=== PATIENT | male | born 1935 | race Caucasian/White ===

== ENCOUNTER 2018-06-16 12:52 | Day surgery (SDC) | payer MEDICARE, OTHER ==
[2018-06-16] MEDS ORDERED: KETAMINE HCL 500 MG/10 ML VIAL. (15:45)
[2018-06-16] MEDS ORDERED: PROPOFOL 20 ML IV (15:47)
[2018-06-16] MEDS: CHLORHEXIDINE 0.12% 15 ML MOUTHWASH. SWSP (15:58)
[2018-06-16] MEDS: BUPIVACAINE-EPI 0.25%-1:200000 50 ML VIAL. (15:58)
[2018-06-16] MEDS ORDERED: ONDANSETRON PF 4 MG/2 ML VIAL. (16:57)
== END 2018-06-16 17:52 | disposition home or self-care (01) ==
LOC: SURG 12:52
DX: K02.9 Dental caries, unspecified (principal); E78.00 Pure hypercholesterolemia, unspecified; I10 Essential (primary) hypertension; M19.90 Unspecified osteoarthritis, unspecified site; R56.9 Unspecified convulsions; F03.90 Unspecified dementia, unspecified severity, without behavioral disturbance, psychotic disturbance, mood disturbance, and anxiety; E66.9 Obesity, unspecified; Z68.33 Body mass index [BMI] 33.0-33.9, adult; F10.21 Alcohol dependence, in remission; Z79.82 Long term (current) use of aspirin; Z79.899 Other long term (current) drug therapy; Z96.653 Presence of artificial knee joint, bilateral; Z98.49 Cataract extraction status, unspecified eye
CPT/HCPCS: 41899; J0690; J2405; J2704; J3490

== ENCOUNTER → 2018-11-02 | Outpatient (CLI) | payer MEDICARE, OTHER ==
[2018-06-16 17:00] VITALS: BP 106/69
[~2018-11-02] MED LIST: ALLO300T PO; AMLO10TA6 PO; ASPI-630 PO; BARIUM SULFATE 40% (APPLE) 148 GM PWD. PO ONE; DONE10TA7 PO; LEVE500T6 PO; LISI10TA2 PO; MULT1TAB52 PO; PRAV20TA2 PO; QUET25TA5 PO; SERT50TA PO; TRAV5DRO EACHEYE; vit; vitamin b1 PO
--- NOTE | 2018-11-02 14:14 | RAD ---
Video dysphasia study, 11/02/2018: History: Dysphasia The swallowing mechanism was examined fluoroscopically in the lateral projection with the patient ingested a variety of food materials mixed with barium. 3.1 minutes of fluoroscopy time was utilized. One video fluoroscopic loop was recorded by a member of the speech Department. The patient demonstrated good oral control of the barium materials. There tended to be a mild delay in initiation of pharyngeal peristalsis. There was mild intermittent laryngeal penetration with the thin and thickened materials. This intermittently coated the posterior aspect of the epiglottis. Some of this material tended to eventually dribble down toward the vocal cords, although no definite randy aspiration was observed during this study. There tended to be a small amount of vallecular and piriform sinus residue. IMPRESSION: Mildly disordered swallowing mechanism with intermittent laryngeal penetration as described above. No randy aspiration was observed.
== END | disposition home or self-care (01) ==
LOC: RAD 13:17
PROVIDERS: ATTEND Family Medicine
DX: R13.19 Other dysphagia (principal); R47.81 Slurred speech
CPT/HCPCS: 74230; 92526; 92611; G8996; G8997; G8998

== ENCOUNTER 2020-06-29 08:57 | Inpatient (IN) | payer MEDICARE, OTHER ==
[~2020-06-29] VITALS: Ht 182.9 cm; Wt 76.5 kg
[~2020-06-29 08:57] MED LIST changes: -AMLO10TA6 PO; +AMLO10TA8 PO; -BARIUM SULFATE 40% (APPLE) 148 GM PWD. PO ONE; +MULT-445 PO; -MULT1TAB52 PO
--- NOTE | 2020-06-29 09:08 | PHYS DOC ---
General Adult HPI: HPI: Patient is a 84 year old male presents via EMS for concern of STEMI. 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 EMS was called immediately. After thorough evaluation, patient was found to be hemodynamically stable but there was concern for acute STEMI in leads V2 through V4. Patient was administered 324 mg aspirin, nitro placed was applied to left upper extremity, and patient was emergently transferred to our facility for higher acuity of care. Review of Systems: Review of Systems: History limited given patient's baseline mentation and cognition Denies any active chest pain, denies any pain, no shortness of breath Heart Score: HEART Score for Chest Pain: HEART Score for Chest Pain Response (Comments) Value History Highly Suspicious 2 ECG Nonspecific Repolarizatio 1 Age > 65 2 Risk Factors >3 Risk Factors or Hx CAD 2 Troponin < Normal Limit 0 Total 7 Risk Factors: Risk Factors: DM, Current or recent (<one month) smoker, HTN, HLP, family history of CAD, obesity. Risk Scores: Score 0 - 3: 2.5% MACE over next 6 weeks - Discharge Home Score 4 - 6: 20.3% MACE over next 6 weeks - Admit for Clinical Observation Score 7 - 10: 72.7% MACE over next 6 weeks - Early Invasive Strategies Allergies: Allergies: Allergies Coded Allergies Type Severity Reaction Last Updated Verified No Known Drug Allergies 06/16/18 No Physical Exam: PE: Constitutional: Malnourished, mild distress, non-toxic appearance. [] HENT: Normocephalic, atraumatic, bilateral external ears normal, oropharynx moist, no oral exudates, nose normal. [] Eyes: PERRLA, EOMI, conjunctiva normal, no discharge. [] Neck: Normal range of motion, no tenderness, supple, no stridor. [] Cardiovascular:Heart rate regular rhythm, no rubs or gallops. Chest wall non- tender to palpation [] Lungs & Thorax: Bilateral breath sounds clear to auscultation [] Abdomen: Bowel sounds normal, soft, no tenderness, no masses, no pulsatile masses. [] Skin: Warm, dry, no erythema, no rash. [] Back: No tenderness, no CVA tenderness. [] Extremities: No tenderness, no cyanosis, no clubbing, ROM intact, no edema. [] Neurologic: Alert and oriented to hospital only, baseline motor and sensory function per patient and EMS, no focal deficits noted. [] Psychologic: Flat affect, judgement normal, mood normal. [] Current Patient Data: Labs: Laboratory Tests Test 06/29/20 09:07 06/29/20 10:15 06/29/20 15:10 White Blood Count 8.9 x10^3/uL Red Blood Count 3.89 x10^6/uL Hemoglobin 11.7 g/dL Hematocrit 35.6 % Mean Corpuscular Volume 91 fL Mean Corpuscular Hemoglobin 30 pg Mean Corpuscular Hemoglobin Concent 33 g/dL Red Cell Distribution Width 13.5 % Platelet Count 305 x10^3/uL Neutrophils (%) (Auto) 43 % Lymphocytes (%) (Auto) 48 % Monocytes (%) (Auto) 5 % Eosinophils (%) (Auto) 3 % Basophils (%) (Auto) 1 % Neutrophils # (Auto) 3.8 x10^3/uL Lymphocytes # (Auto) 4.3 x10^3/uL Monocytes # (Auto) 0.4 x10^3/uL Eosinophils # (Auto) 0.3 x10^3/uL Basophils # (Auto) 0.1 x10^3/uL Sodium Level 142 mmol/L Potassium Level 3.2 mmol/L Chloride Level 104 mmol/L Carbon Dioxide Level 25 mmol/L Anion Gap 13 Blood Urea Nitrogen 10 mg/dL Creatinine 1.4 mg/dL Estimated GFR (Cockcroft-Gault) 48.2 BUN/Creatinine Ratio 7 Glucose Level 141 mg/dL Calcium Level 9.4 mg/dL Total Bilirubin 1.0 mg/dL Aspartate Amino Transf (AST/SGOT) 28 U/L Alanine Aminotransferase (ALT/SGPT) 25 U/L Alkaline Phosphatase 63 U/L Troponin I Quantitative < 0.017 ng/mL < 0.017 ng/mL Total Protein 7.9 g/dL Albumin 3.3 g/dL Albumin/Globulin Ratio 0.7 Ammonia 14 mcmol/L Vital Signs: Vital Signs Date Time Temp Pulse Resp B/P (MAP) Pulse Ox O2 Delivery O2 Flow Rate FiO2 06/29/20 12:50 96.7 69 16 94/55 (68) 96 Room Air 96.7 06/29/20 12:25 60 18 99 06/29/20 12:10 58 99 06/29/20 11:55 58 99 06/29/20 11:40 60 99 06/29/20 11:25 58 99 06/29/20 11:10 60 99 06/29/20 10:55 64 97 06/29/20 10:40 64 97 06/29/20 10:25 66 99 06/29/20 10:10 66 98 06/29/20 09:55 68 99 06/29/20 09:40 66 98 06/29/20 09:25 68 98 06/29/20 09:02 66 22 97 06/29/20 09:00 98.1 72 20 105/60 (75) 98 Nasal Cannula 1.0 98.1 EKG: EKG: EKG ordered and interpreted by myself at 0901 hrs. as normal sinus rhythm at 75 bpm, prolonged QTC 492, no axis deviation, no acute ischemic findings, no STEMI Radiology/Procedures: Radiology/Procedures: PROCEDURE: PORTABLE CHEST 1V AP chest. HISTORY: Chest pain AP view was taken of the chest. There is elevation left diaphragm. There is linear scarring or atelectasis in the left lung base. Heart is within normal limits in size. There is no pleural effusion. There are no other infiltrates. There is hypertrophic change in the thoracic spine and mild scoliosis. IMPRESSION: 1. Elevated left diaphragm. 2. Left base linear scarring or atelectasis. 3. No other acute infiltrates. Electronically signed by: Tucker Martinez MD (06/29/2020 9:21 AM) [id number] PROCEDURE: CT HEAD AND CERVICAL SPINE WO CT HEAD AND CERVICAL SPINE WO Date: 06/29/2020 9:17 AM Clinical Indication: fall, hit head, pain Comparison: 02/21/2020. Technique: 5 mm axial tomographic images were obtained of the head without contrast. These were viewed on brain and bone windows. Noncontrast CT of the cervical spine was performed. Sagittal and coronal reformats were performed and evaluated. One or more of the following dose reduction techniques were utilized: Automated exposure control (AEC), Adjustment of mA and/or kV according to patient size, Use of iterative reconstruction technique such as ASiR, CT scan done according to ALARA and image gently/image wisely HEAD FINDINGS: Moderate generalized cerebral and cerebellar volume loss. Extensive nonspecific periventricular hypoattenuation, most commonly seen with chronic small vessel ischemic disease. No intra- or extra-axial mass or fluid collection. No acute hemorrhage. The ventricles are normal in size, shape, and morphology. The george-white matter junction is normal. The basilar cisterns are patent. The visualized paranasal sinuses are normal. The visualized portions of the orbits and globes are normal. The mastoid air cells are clear. No aggressive osseous lesion or fracture. CERVICAL SPINE FINDINGS: The cervical spine is normally aligned. No acute fracture. No aggressive lytic or blastic osseous lesions. Moderate to severe multilevel degenerative disc space height loss. Multilevel mild spinal canal stenosis secondary to disc protrusions and marginal osteophytes. Multilevel moderate to severe neuroforaminal narrowing secondary to uncovertebral arthrosis. Multilevel moderate to severe facet arthrosis. The thyroid gland is normal. No cervical lymphadenopathy. Bilateral carotid atherosclerosis. The visualized aerodigestive tract is normal. The visualized portions of the lungs are clear. IMPRESSION: 1. No acute intracranial process. 2. No acute cervical spine fracture. Electronically signed by: Anastacio Kaufman MD (06/29/2020 9:40 AM) [id number] Course & Med Decision Making: Course & Med Decision Making EMS EKG reviewed by myself prior to arrival, non-concerning for acute STEMI Patient seen immediately on ED arrival by myself, nontoxic appearing, hemodynamically stable with repeat EKG showing no acute STEMI Comprehensive history and physical exam obtained with no acute surgical findings Pertinent labs and imaging obtained, grossly unremarkable Patient case discussed at length with patient and who assisted with further history gathering. All in favor for admission for continued observation and h igh risk patient Case discussed with hospitalist who agreed to admission for continued cardiac observation with consideration for cardiology consultation All questions and concerns addressed prior to transport up for further medical management Dragon Disclaimer: Dragon Disclaimer: This electronic medical record was generated, in whole or in part, using a voice recognition dictation system. Departure Departure Impression: Primary Impression: Chest pain Additional Impression: History of recent fall Disposition: ADMITTED INPATIENT Admitting Physician: Madi. Morrow Condition: STABLE Referrals: MICHAEL VILLANUEVA MD (PCP) Justicifation of Admission Dx: Justifications for Admission: Justification of Admission Dx: Yes Angina: Unstable Variant LIANET HAINES DO Jun 29, 2020 09:08
[2020-06-29 09:15] LABS: BASO # 0.1 x10^3/uL (0.0-0.2); BASO % 1 % (0-3); EOS # 0.3 x10^3/uL (0.0-0.7); EOS % 3 % (0-3); HEMATOCRIT 35.6 % (39.0-53.0); HEMOGLOBIN 11.7 g/dL (13.0-17.5); LYMPH # 4.3 x10^3/uL (1.0-4.8); LYMPH % 48 % (24-48); MEAN CORPUSCULAR HEMOGLOBIN 30 pg (25-35); MEAN CORPUSCULAR HGB CONC 33 g/dL (31-37); MEAN CORPUSCULAR VOLUME 91 fL (79-100); MONO # 0.4 x10^3/uL (0.0-1.1); MONO % 5 % (0-9); NEUT # 3.8 x10^3/uL (1.8-7.7); NEUT % 43 % (31-73); PLATELET COUNT 305 x10^3/uL (140-400); RED BLOOD COUNT 3.89 x10^6/uL (4.30-5.70); RED CELL DISTRIBUTION WIDTH 13.5 % (11.5-14.5); WHITE BLOOD COUNT 8.9 x10^3/uL (4.0-11.0)
--- NOTE | 2020-06-29 09:23 | RAD ---
AP chest. HISTORY: Chest pain AP view was taken of the chest. There is elevation left diaphragm. There is linear scarring or atelectasis in the left lung base. Heart is within normal limits in size. There is no pleural effusion. There are no other infiltrates. There is hypertrophic change in the thoracic spine and mild scoliosis. IMPRESSION: 1. Elevated left diaphragm. 2. Left base linear scarring or atelectasis. 3. No other acute infiltrates. Electronically signed by: Tucker Martinez MD (06/29/2020 9:21 AM) [id number]
[2020-06-29 09:26] LABS: CALCIUM 9.4 mg/dL (8.5-10.1); CREATININE 1.4 mg/dL (0.7-1.3); GFR 48.2; POTASSIUM 3.2 mmol/L (3.5-5.1)
[2020-06-29 09:32] LABS: ALBUMIN 3.3 g/dL (3.4-5.0); ALBUMIN/GLOBULIN RATIO 0.7 (1.0-1.7); TOTAL PROTEIN 7.9 g/dL (6.4-8.2)
--- NOTE | 2020-06-29 09:43 | RAD ---
CT HEAD AND CERVICAL SPINE WO Date: 06/29/2020 9:17 AM Clinical Indication: fall, hit head, pain Comparison: 02/21/2020. Technique: 5 mm axial tomographic images were obtained of the head without contrast. These were viewed on brain and bone windows. Noncontrast CT of the cervical spine was performed. Sagittal and coronal reformats were performed and evaluated. One or more of the following dose reduction techniques were utilized: Automated exposure control (AEC), Adjustment of mA and/or kV according to patient size, Use of iterative reconstruction technique such as ASiR, CT scan done according to ALARA and image gently/image wisely HEAD FINDINGS: Moderate generalized cerebral and cerebellar volume loss. Extensive nonspecific periventricular hypoattenuation, most commonly seen with chronic small vessel ischemic disease. No intra- or extra-axial mass or fluid collection. No acute hemorrhage. The ventricles are normal in size, shape, and morphology. The george-white matter junction is normal. The basilar cisterns are patent. The visualized paranasal sinuses are normal. The visualized portions of the orbits and globes are normal. The mastoid air cells are clear. No aggressive osseous lesion or fracture. CERVICAL SPINE FINDINGS: The cervical spine is normally aligned. No acute fracture. No aggressive lytic or blastic osseous lesions. Moderate to severe multilevel degenerative disc space height loss. Multilevel mild spinal canal stenosis secondary to disc protrusions and marginal osteophytes. Multilevel moderate to severe neuroforaminal narrowing secondary to uncovertebral arthrosis. Multilevel moderate to severe facet arthrosis. The thyroid gland is normal. No cervical lymphadenopathy. Bilateral carotid atherosclerosis. The visualized aerodigestive tract is normal. The visualized portions of the lungs are clear. IMPRESSION: 1. No acute intracranial process. 2. No acute cervical spine fracture. Electronically signed by: Anastacio Kaufman MD (06/29/2020 9:40 AM) [id number]
[2020-06-29] MEDS ORDERED: NITROGLYCERIN SUBLINGUAL 0.4 MG BOTTLE OF 25. SL PRN (12:00)
[2020-06-29 12:50] VITALS: BP 94/55
[2020-06-29] MEDS ORDERED: POTASSIUM CHLORIDE 20 MEQ TABLET.ER. PO ONE (15:15)
--- NOTE | 2020-06-29 15:30 | PDOC2 ---
VAZQUEZ ANDERSON ELECTROCARDIOGRAPH TECHNICIAN 06/29/20 1530: CARDIAC CONSULT DATE OF CONSULT Date of Consult DATE: 06/29/20 TIME: 15:06 REASON FOR CONSULT Reason for Consult: Chest pain, r/o ACS REFERRING PHYSICIAN Referring Physician: Carlos SOURCE Source: Chart review HISTORY OF PRESENT ILLNESS HISTORY OF PRESENT ILLNESS This is an 84 yo male admitted for altered mental state. She resides at the half-way and being walked by therapy and he was noted to just started having twitching episode and was diaphoretic and was not responding with communication. No lost of consciousness. There was no complains of chest pain or SOA. His VS was checked and he was not tachypneic and his O2 sat was at 96%. He was given ASA byt EMS by mouth but he was noted to be pocketing this . He was just discharged on 06/20 from [facility] and was treated over there for UTI. No prior hx of CAD nor arrhythmias. He does have hx of CVA and seizures and significant for dementia with severe cerebral atrophy. I discussed this further with his daughter and told me that he was sitting on the toilet this morning and started twitching and also became unresponsive. PAST MEDICAL HISTORY Cardiovascular: HTN, Hyperlipidemia, Other (mild carotid artery disease) Pulmonary: Pneumonia CENTRAL NERVOUS SYSTEM: CVA (hemorhagic CVA in 2009), Dementia, Seizure, TIA, Other (severe cerebral atrophy) Heme/Onc: Anemia NOS Psych: Anxiety, Depression Musculoskeletal: Osteoarthritis Rheumatologic: Gout Renal/: UTI, Urinary Incontinence, Other (nephrolithiasis) Endocrine: Diabetes (2) PAST SURGICAL HISTORY Past Surgical History: Total knee replacement (bilateral), Other (right lumpectomy) FAMILY HISTORY Family History: Coronary Artery Disease SOCIAL HISTORY Smoke: No ALCOHOL: other (prior heavy ETOH use) ALLERGIES ALLERGIES: Coded Allergies: rosuvastatin (Verified Allergy, Intermediate, 06/30/20) ROS Review of System unreliable, dementia PHYSICAL EXAM General: Alert, No acute distress HEENT: Atraumatic Lungs: Other (diminished) Heart: Regular rate (SR), Normal S1, Normal S2, No murmurs Abdomen: Soft, No tenderness Extremities: No cyanosis, No edema Skin: No breakdown, No significant lesion Neuro: Sensation intact Psych/Mental Status: Other (combative at times, confused) MUSCULOSKELETAL: Osteoarthritic changes both hands VITALS/I&O VITALS/I&O: Vital Signs Date Time Temp Pulse Resp B/P (MAP) Pulse Ox O2 Delivery O2 Flow Rate FiO2 06/29/20 12:50 96.7 69 16 94/55 (68) 96 Room Air 96.7 06/29/20 09:00 1.0 LABS Lab: Laboratory Tests Test 06/29/20 09:07 06/29/20 10:15 White Blood Count 8.9 x10^3/uL (4.0-11.0) Red Blood Count 3.89 x10^6/uL (4.30-5.70) L Hemoglobin 11.7 g/dL (13.0-17.5) L Hematocrit 35.6 % (39.0-53.0) L Mean Corpuscular Volume 91 fL (79-100) Mean Corpuscular Hemoglobin 30 pg (25-35) Mean Corpuscular Hemoglobin Concent 33 g/dL (31-37) Red Cell Distribution Width 13.5 % (11.5-14.5) Platelet Count 305 x10^3/uL (140-400) Neutrophils (%) (Auto) 43 % (31-73) Lymphocytes (%) (Auto) 48 % (24-48) Monocytes (%) (Auto) 5 % (0-9) Eosinophils (%) (Auto) 3 % (0-3) Basophils (%) (Auto) 1 % (0-3) Neutrophils # (Auto) 3.8 x10^3/uL (1.8-7.7) Lymphocytes # (Auto) 4.3 x10^3/uL (1.0-4.8) Monocytes # (Auto) 0.4 x10^3/uL (0.0-1.1) Eosinophils # (Auto) 0.3 x10^3/uL (0.0-0.7) Basophils # (Auto) 0.1 x10^3/uL (0.0-0.2) Sodium Level 142 mmol/L (136-145) Potassium Level 3.2 mmol/L (3.5-5.1) L Chloride Level 104 mmol/L (98-107) Carbon Dioxide Level 25 mmol/L (21-32) Anion Gap 13 (6-14) Blood Urea Nitrogen 10 mg/dL (8-26) Creatinine 1.4 mg/dL (0.7-1.3) H Estimated GFR (Cockcroft-Gault) 48.2 BUN/Creatinine Ratio 7 (6-20) Glucose Level 141 mg/dL (70-99) H Calcium Level 9.4 mg/dL (8.5-10.1) Total Bilirubin 1.0 mg/dL (0.2-1.0) Aspartate Amino Transferase (AST) 28 U/L (15-37) Alanine Aminotransferase (ALT) 25 U/L (16-63) Alkaline Phosphatase 63 U/L (46-116) Troponin I Quantitative < 0.017 ng/mL (0.000-0.055) Total Protein 7.9 g/dL (6.4-8.2) Albumin 3.3 g/dL (3.4-5.0) L Albumin/Globulin Ratio 0.7 (1.0-1.7) L Ammonia 14 mcmol/L (11-34) Laboratory Tests 06/29/20 09:07 Laboratory Tests 06/29/20 09:07 ECHOCARDIOGRAM ECHOCARDIOGRAM <Conclusion> The left ventricle is normal size. The left ventricular systolic function is normal and the ejection fraction is within normal range. The Ejection Fraction is 55-60%. There is mild concentric left ventricular hypertrophy. There is no significant aortic valvular stenosis. Doppler and Color Flow revealed no significant aortic regurgitation. Doppler and Color Flow revealed trace mitral valve regurgitation. Doppler and Color Flow revealed trace tricuspid regurgitation. The PA pressure was estimated at 24 mmHg. DATE: 10/09/18 1150 ASSESSMENT/PLAN ASSESSMENT/PLAN 1. Atypical chest pain: no noted chest pain. EKG SR with IVCD no acute changes 2. Encephalopathy with possible seizure episode 3. Hypokalemia 4. Hx of hemorrhagic CVA: 2009 5. Hx of seizures: noted to be twicthing at the facility 6. DM2 7. Recent UTI with hx of nephrolithiasis 8. HTN: BP at low end. 9. DM2/HLP 10. High risk for aspiration 11. Underlying dementia with severe cerebral atrophy Recommendations 1. Hold BP meds for now DC NTG paste placed by EMS 2. Doubt ACS, No acute changes to EKG. Recheck UA for any persistent UTI contributing to encephalopathy 3. Replace K. 4. Conservative measures, discussed with daughter and spouse. will provide her copy of DNR form as she described 5. Likely dehydratedm, IVF x1, will defer further to PCP. Discussed with RN. COLLIN BURNETTE MD 06/30/20 1056: CARDIAC CONSULT ASSESSMENT/PLAN ASSESSMENT/PLAN Late entry for 06/29/2020 Pt. seen and examined. Agree with above HEALTHCARE RECRUITER note. No cardiac issues. Consider hospice consult. Thanks Discussed with family at bedside. VAZQUEZ ANDERSON APRN Jun 29, 2020 15:30 COLLIN BURNETTE MD Jun 30, 2020 10:56
[2020-06-29] MEDS ORDERED: IV NORMAL SALINE 1000ML BAG 1,000 ML IV ONE (16:15)
[2020-06-29 19:00] VITALS: BP 119/54
--- NOTE | 2020-06-29 19:20 | NUR ---
NURSING NOTE Shift change report given at bedside from Jo DAY. Pt is alert, and able to state his first and last name. Pt says "yes" when asked if he feels ok. Bed alarm on. Will monitor.
[2020-06-29] MEDS ORDERED: ACET500T68 PO (20:16)
[2020-06-29] MEDS ORDERED: CHOL2400 MC (20:16)
[2020-06-29] MEDS ORDERED: LEVE500T21 PO (20:16)
[2020-06-29] MEDS ORDERED: TIMO5DRO35 OP (20:16)
--- NOTE | 2020-06-29 22:14 | NUR ---
NURSING NOTE Upon entering the pt room, pt had taken all his clothing off, pulled both IVs out and thrown tele pack on the floor. Pt very agitated and attempting to hit and kick staff when trying to place a brief and replace gown and tele monitor. Attempted to calm pt, but unable. Dr. Gonzalez called. Order for YADIRA Rice received. Will monitor.
[2020-06-29] MEDS ORDERED: HALOPERIDOL LACTATE 5 MG/ML VIAL. IM ONE (22:30)
[2020-06-29] MEDS: HALOPERIDOL LACTATE 5 MG/ML VIAL. IM PRN (22:42)
[2020-06-29 23:00] VITALS: BP 116/67
[2020-06-30] MEDS ORDERED: C.DIFF MED SCREEN BY RX. MC ONE (00:30)
--- NOTE | 2020-06-30 00:30 | NUR ---
NURSING NOTE Pt bed alarm going off. Pt attempting to get OOB. Pt directed to place legs back in bed. Pt agreeable to allow this RN to change his brief and his bottom sheet at this time. Pt also allowed a gown to be placed on him, but pulled the telemetry patches off as soon as they were placed, therefore pt refusing tele monitoring at this time. Pt also removed his ID bracelet and allergy/fall risk bracelet and would not allow new ones to be placed at this time. Pt also would not allow a new IV to be started, even after explaining the procedure to the patient several times, pt still pulled arm away and said "no". Pt also would not allow a bandage to be placed over left wrist, where pt had pulled previous IV out, there is a small skin tear. Bed alarm on, pt says "yes" when asked if he is comfortable at this time. Will monitor.
[2020-06-30 04:00] VITALS: BP 97/52
--- NOTE | 2020-06-30 06:15 | NUR ---
NURSING NOTE Pt more alert this morning. Pt agreeable to have brief changed and tele placed back on. Will monitor.
[2020-06-30 07:00] VITALS: BP 100/63
[2020-06-30 08:36] LABS: CHOLESTEROL/HDL RATIO 4.5
[2020-06-30] MEDS ORDERED: ACETAMINOPHEN 500 MG TABLET PO PRN (10:15)
--- NOTE | 2020-06-30 10:25 | PN ---
DATE: 06/30/2020 SUBJECTIVE: The patient is resting, slightly propped up in bed, no apparent distress. He is very agitated, restless, and combative. Apparently, he became also agitated last night and pulled all his IV line and his monitors. We have the nursing staff stated that he continued to have episodes of twitching mostly in his left lower extremity, although there is no loss of consciousness. PHYSICAL EXAMINATION: GENERAL: When I examined him, he looked well and was clearly in no apparent respiratory distress, pale, but no jaundice, cyanosis or thyromegaly. No jugular venous distention. No limb edema. VITAL SIGNS: Her heart rate was 66, blood pressure was 105/60, temperature was 98, respiratory rate was 22, and oxygen saturation was 98% on room air. HEAD, EYES, EARS, NOSE AND THROAT: Showed normocephalic, atraumatic. NECK: Supple. CARDIAC: Normal first and second heart sounds. No gallop, rub or murmur. CHEST: Clear to auscultation. No crepitation or rhonchi. ABDOMEN: Distended, soft, and nontender. NEUROLOGIC: He is awake and alert, but nonverbal. He moves extremities spontaneously, although he is mostly bedbound and chair-bound. He managed to stand and pivot. He apparently continued to have twitching movement mostly in the left lower extremity. Unfortunately, the patient is very combative and pulled his IV line. PLAN: My plan is to put another IV line, start him on IV fluids and switch his Keppra to be given IV. I did consult Dr. Gonzalez as well as speech therapist, physical and occupational therapist. He was seen yesterday by the Cardiology team and has 3 sets of cardiac enzymes that all were ruled out myocardial infarction. LIS DODGE MD DR: RACHELE/ervin JOB#: [id number] / [id number]
[2020-06-30] MEDS: QUEtiapine 25 MG TABLET. PO SCH ×2 (10:30→21:13)
[2020-06-30] MEDS: ALLOPURINOL 300 MG TABLET. PO SCH (10:30)
[2020-06-30] MEDS ORDERED: levETIRAcetam 500 MG TABLET PO SCH ×2 (10:30→21:00)
[2020-06-30] MEDS: THIAMINE 100 MG TABLET. PO SCH (10:30)
[2020-06-30] MEDS: MULTIVITAMIN with MINERAL TABLET. PO SCH (10:30)
[2020-06-30] MEDS: CHOLECALCIFEROL (VITAMIN D3) 1,000 UNIT TABLET PO SCH (10:30)
[2020-06-30] MEDS: amLODIPine BESYLATE 10 MG TABLET PO SCH (10:30)
[2020-06-30] MEDS: SERTRALINE 50 MG TABLET. PO SCH (10:30)
[2020-06-30] MEDS: ASPIRIN CHEWABLE 81 MG TABLET. PO SCH (10:30)
[2020-06-30 11:00] VITALS: BP 109/69
[2020-06-30] MEDS ORDERED: levETIRAcetam 500 MG in IV DEXTROSE 5% 100ML 100 ML IV SCH (11:00)
--- NOTE | 2020-06-30 11:03 | HP ---
ADMIT DATE: 06/29/2020 HISTORY OF PRESENT ILLNESS: The patient is an 84-year-old male patient, resident at [facility], who apparently was participating with physical therapy and according to the nursing staff there, the patient became extremely diaphoretic, unresponsive, and therefore, he was also noted to have twitching episodes. When I spoke with the nursing staff, they said that they has no complaint of chest pain or shortness of breath. He was not tachypneic and his oxygen saturation was normal. He was given an aspirin by the emergency medical personnel; however, he was noted to be pocketing it. The patient was discharged from [facility] on 06/20 where he was treated for UTI and questionable healthcare-associated pneumonia. He has no prior history of coronary artery disease nor has arrhythmia. He is known to have CVA and seizure disorder. He has dementia and severe cerebral atrophy. He is mostly bedbound, chair bound. He managed apparently to stand and pivot. He was evaluated in the Emergency Room of [facility]. Has had lab work, which was mostly unremarkable except that he has hypokalemia. Has had a CT scan of the head and cervical spine, which basically showed no acute intracranial process, no acute cervical spine fracture, was admitted for further evaluation and treatment. PAST MEDICAL HISTORY: Significant for hypertension, hyperlipidemia, type 2 diabetes mellitus, cerebrovascular accident, dementia, gout, benign prostatic hypertrophy, epilepsy, and dysarthria. PAST SURGICAL HISTORY: Significant for lumpectomy of the right chest wall, bilateral total knee arthroplasty and colonoscopy. ALLERGIES:. HE IS ALLERGIC TO CRESTOR. FAMILY HISTORY: Noncontributory. SOCIAL HISTORY: He is currently a resident at [facility]. He is mostly bed bound, wheelchair bound. He is , an ex-smoker, quit in 1971. He used to be also a heavy drinker. REVIEW OF SYSTEMS: As per history of present illness. MEDICATIONS: He is currently on following medications: He is on Aricept 10 mg at bedtime, pravastatin sodium 20 mg at bedtime, amlodipine 10 mg once a day, aspirin 81 mg once a day, lisinopril 10 mg once a day, acetaminophen 1000 mg every 8 hours as needed, Keppra 500 mg twice a day, sertraline for Zoloft 50 mg once a day, quetiapine fumarate 25 mg twice a day. He is on timolol maleate and latanoprost 1 drop to both eyes daily. He is on Travatan 1 drop to both eyes at bedtime. He is on vitamin D3 1000 units daily, multivitamin 1 tablet once a day, allopurinol 300 mg once a day, vitamin B1 one tablet once a day. PHYSICAL EXAMINATION: GENERAL: On arrival to the Emergency Room, he looked well and was clearly in no apparent respiratory distress, pale. No jaundice, cyanosis or thyromegaly. No jugular venous distention. No limb edema. VITAL SIGNS: His heart rate was 72, blood pressure was 105/60, temperature 98.1, respiratory rate was 20, and oxygen saturation was 98% on 1 liter of oxygen. HEAD, EYES, EARS, NOSE AND THROAT: Showed normocephalic, atraumatic. NECK: Supple. HEART: Showed normal first and second heart sounds. No gallop, rub or murmur. CHEST: Clear to auscultation. No crepitation or rhonchi. ABDOMEN: Distended, soft, nontender. NEUROLOGIC: He was alert, oriented. His affect was flat. LABORATORY DATA: He has had lab work done, which showed that his white cell count was 8900, hemoglobin 11.7, hematocrit 36, MCV 91, and platelet count 305,000 with normal manual differential. In fact the manual differential showed 43% polymorphs and 48% lymphocytes, 5% monocytes. His chemistry showed a serum sodium of 142, potassium 3.2, chloride 104, bicarbonate 25, anion gap of 13, BUN 10, creatinine 1.4, estimated GFR was 48 mL per minute. His glucose was 141, calcium was 9.4. Total bilirubin, AST, ALT, alkaline phosphatase were normal. Total protein was 7.9, albumin 3.3. His first set of troponin was less than 0.017. His chest x-ray showed elevated left hemidiaphragm, left base linear scarring atelectasis, no other acute infiltrate. His CT scan of the head showed the patient has moderate generalized cerebral and cerebellar volume loss, extensive nonspecific periventricular hypoattenuation, most commonly seen with chronic small vessel ischemic disease. No intra or extraaxial mass or fluid collection. No acute hemorrhage. The ventricles are normal in size, shape and morphology. The george white matter junction is normal. The basilar cisterns are patent. The visualized paranasal sinuses are normal. The visualized portion of the orbits and globes are normal. The mastoid air cells are clear. No aggressive osseous lesions or fracture is seen. Cervical spine is normally aligned. No acute fracture. No aggressive lytic or blastic osseous lesion. The patient has moderate severe multilevel degenerative disk with height loss, multilevel mild spinal canal stenosis secondary to disk protrusion and marginal osteophyte. Has multilevel moderate to severe neural foraminal narrowing secondary to uncovertebral arthrosis, multilevel moderate to severe facet arthrosis. The thyroid gland is normal. No cervical lymphadenopathy, bilateral carotid atherosclerosis. The visualized aerodigestive tract is normal. ASSESSMENT AND PLAN: The patient was admitted. We will have 2 more sets of cardiac enzymes to rule out myocardial infarction. We will check and replenish his potassium. In fact, he was started on IV fluid and we have consulted the [employer] operations intelligence chief ____ mention of chest pain, although when I spoke with the daughter and RN, who took care of and she did not say that the patient has any chest pain. We will also ____ breakthrough seizure is possibility, so I will consult the neurologist. LIS DODGE MD DR: RACHELE/ervin JOB#: [id number] / [id number]
--- NOTE | 2020-06-30 12:01 | NUR ---
Bedside Swallow Evaluation completed. Please refer to full report in intervention section for additional information. Impressions: Moderate oropharyngeal dysphagia w/ subtle, consistent s/s aspiration w/ minimal trials of honey thick liquids and puree. Pt has dysphagia hx w/ 2018 videoswallow recommending soft diet and honey thick liquids. Currently pt at high risk of aspiration for all PO. His decreased/altered mental status at this admission from his prior baseline could be a contributing factor in addition to prior known aspiration risk. Recommendations: NPO, ST f/u for dysphagia to assess readiness/safety for return to [facility]. Nutrition consult. D/w RNJanie, pt and pt's dtr in room, swallow precautions posted.
[2020-06-30] MEDS: HALOPERIDOL LACTATE 5 MG/ML VIAL. IM PRN ×2 (14:11→19:49)
[2020-06-30 14:41] VITALS: BP 112/67
--- NOTE | 2020-06-30 16:42 | NUR ---
and daughter at bedside. , VONDA, had paperwork signed by patient from 2018 indicating that he requested to be a DNR. Discussed with family options of IV fluids or letting pt comfort eat/drink in spite of failed BSS. Risk of aspiration discussed in depth with family who wishes to proceed and let patient eat/drink. will place patient on puree w/ HTL as that is what he was on at [facility]. Pt also made a DNR in record. family requests no IV restart and that tele be removed as pt was pulled at the leads. Family also requested hospice consult for when patient returns to [place]. SW referral placed for hospice.
[2020-06-30] MEDS ORDERED: AMLO10TA4 PO (18:13)
[2020-06-30] MEDS ORDERED: ASPI-630 PO (18:13)
[2020-06-30] MEDS ORDERED: LACT1CAP48 PO (18:13)
--- NOTE | 2020-06-30 18:26 | CONS ---
DATE OF CONSULTATION: 06/30/2020 REFERRING PHYSICIAN: Odalys Gonzalez MD REASON FOR CONSULTATION: Possible seizure. HISTORY OF PRESENT ILLNESS: The patient is an 84-year-old man who has been a resident of [facility] for the last year. He had a stroke in 1999 and has been an alcoholic until about 3 or 4 years ago. The alcoholism and the stroke traumatically caused deterioration in his cognition. He still recognizes his some of the time as well as his daughter. His level of functioning is quite impaired. He was having physical therapy at his facility when he had a spell, which may have been a seizure. He has a prior history of seizure, which occurred after the stroke. He had been maintained on levetiracetam 500 mg twice per day. He underwent a CT scan of the head and cervical spine in the Emergency Room, which did not reveal an acute process. At bedside, was his and daughter who were valuable historians. PAST MEDICAL HISTORY: 1. Type 2 diabetes. 2. Hyperlipidemia. 3. Glaucoma. 4. Gout. 5. Benign prostate hypertrophy. 6. Hypertension. 7. Anxiety disorder. 8. Dysphagia. 9. Vascular dementia with behavior disturbance. 10. Recurrent urinary tract infection. 11. History of encephalopathy. 12. History of severe sepsis. 13. Seizures. 14. Aspiration pneumonitis. 15. Lumpectomy of the right chest wall. 16. Bilateral total knee replacements. ALLERGIES: ROSUVASTATIN. MEDICATIONS PRIOR TO ADMISSION: Which are taken directly from [facility] medication record: 1. Probiotics. 2. Aspirin 81 mg. 3. Donepezil 10 mg. 4. Keflex 500 mg 3 times a day for UTI until 06/29/2020. 5. Keppra 500 mg twice per day. 6. Multivitamin with minerals. 7. Amlodipine 10 mg. 8. Seroquel 12.5 mg at night. 9. Thiamine 100 mg. 10. Timolol ophthalmic drops once per day. 11. Travatan ophthalmic solution daily. 12. Tylenol Extra Strength 2 tablets every 8 hours as needed. 13. Vitamin D3 2000 International Units. FAMILY HISTORY: Noncontributory. SOCIAL HISTORY: He has been a resident of [facility] for about a year. He is mostly bedbound or in a wheelchair. He quit smoking in 1971. He used to be an alcoholic, but quit drinking about 3 or 4 years ago. He is and has children. REVIEW OF SYSTEMS: He is not a reliable historian. He does not complain of any pain or headache. He had a spell, which may have been seizure leading to admission. He has had urinary tract infection. He does cycle in moods in at times as angry and irritable and at times as pleasant and smiling. PHYSICAL EXAMINATION: VITAL SIGNS: The blood pressure was 112/67, pulse 66, respirations 16, temperature 98 degrees Fahrenheit. Oximetry was 94% on room air. His weight was 76.5 kilograms, height 72 inches with a calculated body mass index of 22.9. GENERAL: He was lying in the bed, in no distress. He looked at the examiner and smiled. He had difficulty following commands, but could follow some simple commands. He was not oriented in the slightest. He did recognize his and daughter. NEUROLOGIC: Examination of the cranial nerves revealed visual vasquez were intact to visual threat by blinking. Oculocephalic reflex was intact. Pupils were 2 mm. He was not able to cooperate for funduscopic exam. Facial sensation was intact. Muscles of mastication and facial expression were symmetric. Hearing was intact to clap with a blink. Tongue was midline. He spoke little and voice was very difficult to understand. Muscle bulk was diminished. Tone was not spastic or rigid. He was able to resist movement, but formal power testing was difficult due to inability to cooperate. Movements did, however, appear symmetric in arms and legs, but generally weak. Reflexes 1/4 in the upper extremities, absent in knees and ankles. Toes were not upgoing, but he did strongly withdraw to plantar stimulation symmetrically. Coordination testing was not possible, but spontaneous movements were well-coordinated. Sensory exam was intact to cold, sharp and light touch. He was not a reliable sensory witness with other modalities. Gait was not testable. NECK: Auscultation of the carotid arteries did not reveal a bruit. HEART: Rhythm was regular without a murmur. EXTREMITIES: Peripheral pulses were symmetric. There was no edema or cyanosis. He scratched to skin and did cause little petechial hemorrhages under the skin. LABORATORY RESULTS: CBC was performed 06/29/2020 revealing a normal white blood cell count and platelet count. Hemoglobin was low at 11.7, hematocrit at 35.6. Chemistries were performed on 06/29/2020 with normal sodium, chloride and CO2, but potassium was low at 3.2. BUN was 10 and creatinine elevated to 1.4 with a GFR that calculated at 48.2. Glucose was 141. Calcium was normal, but albumin was low at 3.3 and total protein normal at 7.9. The liver enzymes were not elevated. Troponin was not elevated nor was ammonia. A fasting lipid profile was performed on 06/30/2020. Total cholesterol was 138, triglycerides were 88, HDL was low at 31 and LDL was 89. VLDL was 18. DIAGNOSTIC RESULTS: CT scan of the head and cervical spine was performed 06/29/2020. This revealed no acute intracranial process and no acute cervical spine fracture. Chest x-ray was performed 06/29/2020 revealing an elevated left hemidiaphragm. Left lung base linear scarring or atelectasis and no other acute infiltrate. IMPRESSION: The patient is an 84-year-old man who had a stroke 20 years ago leading to dysphagia and some expressive aphasia. It also adversely affected his cognition as did his long-term alcohol consumption. He has a very advanced dementia. He had a breakthrough seizure, on Keppra 500 mg twice per day. I am relieved that there was no evidence of intracranial hemorrhage. Neurologic exam was limited due to his dementia, but appeared nonfocal. RECOMMENDATIONS: We will increase Keppra, which is currently 500 mg twice per day, to 750 mg twice per day. This should still be compatible with his current level of kidney functioning. I have reviewed the medicines that have been prescribed for him in the hospital. The list used for the inpatient list seems slightly different than what was given at [facility] with the sertraline, Seroquel, allopurinol, and Haldol. Haldol looks to be p.r.n. I will let the nurse contact the admitting physician to make necessary adjustments based upon what he was receiving over the last year at [facility]. Hopefully, he will not have further seizures on levetiracetam 750 mg twice per day. FIFI YORK MD DR: MICHELLE/ervin JOB#: [id number] / [id number]
[2020-06-30 19:00] VITALS: BP 119/74
[2020-06-30] MEDS: NYSTATIN TOPICAL POWDER 15GM BOTTLE. TP SCH (21:00)
[2020-06-30] MEDS: DONEPEZIL HCL 10 MG TABLET. PO SCH ×2 (21:00→21:13)
[2020-06-30] MEDS: TIMOLOL 0.5% OPHTH SOLUTION 5ML BOTTLE. OU SCH ×2 (21:00→21:14)
[2020-06-30] MEDS: levETIRAcetam 250 MG TABLET PO SCH ×2 (21:00→21:13)
[2020-06-30] MEDS: LATANOPROST 0.005% OPHTH SOLUTION 2.5ML BOTTLE. OU SCH ×2 (21:00→21:13)
[2020-06-30] MEDS: NON FORMULARY ITEM (Pravastatin Sodium 1 TAB) PO SCH (21:00)
[2020-06-30 23:00] VITALS: BP 207/51
[2020-07-01 03:00] VITALS: BP 130/82
[2020-07-01 07:59] VITALS: BP 108/75
[2020-07-01 08:52] LABS: ALBUMIN 3.2 g/dL (3.4-5.0); ALBUMIN/GLOBULIN RATIO 0.7 (1.0-1.7); CALCIUM 9.1 mg/dL (8.5-10.1); CREATININE 1.1 mg/dL (0.7-1.3); GFR 63.6; POTASSIUM 3.5 mmol/L (3.5-5.1); TOTAL BILIRUBIN 0.8 mg/dL (0.2-1.0); TOTAL PROTEIN 7.7 g/dL (6.4-8.2)
[2020-07-01] MEDS: amLODIPine BESYLATE 10 MG TABLET PO SCH (09:00)
[2020-07-01] MEDS ORDERED: [UNRECOGNIZED DRUG - OTHER] OP SCH (09:00)
[2020-07-01] MEDS: THIAMINE 100 MG TABLET. PO SCH (09:00)
[2020-07-01] MEDS: MULTIVITAMIN with MINERAL TABLET. PO SCH (09:00)
[2020-07-01] MEDS ORDERED: LATANOPROST OP SCH (09:00)
[2020-07-01] MEDS: QUEtiapine 25 MG TABLET. PO SCH ×2 (09:00→22:30)
[2020-07-01] MEDS: levETIRAcetam 250 MG TABLET PO SCH ×2 (09:00→22:30)
[2020-07-01] MEDS: SERTRALINE 50 MG TABLET. PO SCH (09:00)
[2020-07-01] MEDS: CHOLECALCIFEROL (VITAMIN D3) 1,000 UNIT TABLET PO SCH (09:00)
[2020-07-01] MEDS: ALLOPURINOL 300 MG TABLET. PO SCH (09:00)
[2020-07-01] MEDS: ASPIRIN CHEWABLE 81 MG TABLET. PO SCH (09:00)
[2020-07-01] MEDS ORDERED: TIMOLOL MALEATE OP SCH (09:00)
--- NOTE | 2020-07-01 11:47 | PN ---
DATE: 07/01/2020 SUBJECTIVE: The patient is resting slightly propped up in bed, in no apparent distress. He continued to be mostly nonverbal. Nursing staff stated he became extremely agitated, attempted to get out of the bed and took off his clothes and was transferred to room near the nursing staff. He was seen yesterday by Dr. Ruffin and increased his Keppra to 750 mg twice a day. His family decided basically to consider hospice care and they changed his code status to DNR and discussed various options with the family and basically the family wishes to proceed and let the patient to eat and drink. He was started on a pureed diet, honey thickened liquid and the family requested that no IV be restarted and that tele be removed as the patient was pulling the leads and requested hospice consult for when the patient is to return to [facility] and social services analyst referral was placed in hospice. OBJECTIVE: GENERAL: When I examined him this morning, he looked well and was clearly in no apparent respiratory distress, pale, but no jaundice, cyanosis or thyromegaly. No jugular venous distention or limb edema. VITAL SIGNS: His heart rate was 80, blood pressure was 130/82, temperature was 98.2, respiratory rate was 18 and oxygen saturation was 97%. The rest of clinical exam is stable. His intake was 400, no output was recorded. LABORATORY AND DIAGNOSTIC DATA: His lab work as of this morning showed a serum sodium 144, potassium 3.5, chloride 107, bicarbonate 30, anion gap of 7, BUN 9, creatinine 1.1, estimated GFR was 64 mL per minute, his glucose 136, calcium was 9.1. Total bilirubin, AST, ALT, alkaline phosphatase were normal. Total protein 7.7, albumin 3.2. His most recent white cell count was 8900, hemoglobin 11, hematocrit 36, MCV 91, and platelet count 305,000. ASSESSMENT AND PLAN: 1. 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 2. Advanced dementia. 3. Seizure disorder for which he is on Keppra, has had breakthrough seizures for which he increased his Keppra to 750 mg twice a day. The family requested no IV line and no telemetry and that the patient should be allowed to eat and drink given the risk of aspiration that upon discharge should be discharged on hospice care. His code status was changed to DNR/DNI. LIS DODGE MD DR: RACHELE/ervin JOB#: [id number] / [id number]
[2020-07-01 11:59] VITALS: BP 111/69
--- NOTE | 2020-07-01 12:09 | NUR ---
a.m. meds crushed and placed in applesauce. pt refused to take bites.
[2020-07-01] MEDS: NYSTATIN TOPICAL POWDER 15GM BOTTLE. TP SCH ×2 (13:34→22:43)
--- NOTE | 2020-07-01 17:19 | NUR ---
VONDA Cummins, has requested no more labs be drawn on patient.
[2020-07-01 19:00] VITALS: BP 108/66
[2020-07-01] MEDS: DONEPEZIL HCL 10 MG TABLET. PO SCH (22:30)
--- NOTE | 2020-07-01 22:30 | NUR ---
NURSING NOTE Pt initially refused to have assessment done earlier in the shift, but pt is very cooperative at this time. Pt allowed assessment, and took his HS medications crushed in pudding, and drank a container of thickened water. Pt also agreeable to having a bath and hair wash. Pt bathed, lotion applied, hair washed and combed, linens and gown changed. Pt turned to the left side after bath. Will monitor.
[2020-07-01] MEDS: LATANOPROST 0.005% OPHTH SOLUTION 2.5ML BOTTLE. OU SCH (22:42)
[2020-07-01] MEDS: TIMOLOL 0.5% OPHTH SOLUTION 5ML BOTTLE. OU SCH (22:42)
[2020-07-01] MEDS: NON FORMULARY ITEM (Pravastatin Sodium 1 TAB) PO SCH (22:43)
[2020-07-01 23:00] VITALS: BP 110/63
[2020-07-02] VITALS (7 sets, daily range): BP systolic 87–119; BP diastolic 54–72
[2020-07-02] MEDS: THIAMINE 100 MG TABLET. PO SCH (08:25)
[2020-07-02] MEDS: levETIRAcetam 250 MG TABLET PO SCH ×2 (08:25→21:49)
[2020-07-02] MEDS: QUEtiapine 25 MG TABLET. PO SCH ×3 (08:25→21:48)
[2020-07-02] MEDS: ASPIRIN CHEWABLE 81 MG TABLET. PO SCH (08:25)
[2020-07-02] MEDS: CHOLECALCIFEROL (VITAMIN D3) 1,000 UNIT TABLET PO SCH (08:25)
[2020-07-02] MEDS: MULTIVITAMIN with MINERAL TABLET. PO SCH (08:26)
[2020-07-02] MEDS: amLODIPine BESYLATE 10 MG TABLET PO SCH (08:26)
[2020-07-02] MEDS: ALLOPURINOL 300 MG TABLET. PO SCH (08:26)
[2020-07-02] MEDS: SERTRALINE 50 MG TABLET. PO SCH (08:35)
--- NOTE | 2020-07-02 08:36 | NUR ---
zoloft nonadmin d/t he does not take this at [facility]. sertraline nonadmin d/t he only takes 12.5 mg at [facility]
--- NOTE | 2020-07-02 09:36 | PDOC ---
PROGRESS NOTES Assessment Problems Medical Problems: (1) Chest pain Status: Acute (2) History of recent fall Status: Acute History of stroke stroke 20 years ago leading to dysphagia and some expressive aphasia. History of alcoholism Advanced dementia Epilepsy with breakthrough seizure. Plan Increased Keppra, which to 750 mg twice per day. Okay for discharge Follow-up with neurology as needed Note that he is DNR, and will be going to hospice care. Subjective Indicates no pain Objective Vital Signs Date Time Temp Pulse Resp B/P (MAP) Pulse Ox O2 Delivery O2 Flow Rate FiO2 07/02/20 08:26 57 119/72 07/02/20 07:00 98.0 17 96 Room Air 98.0 07/01/20 08:00 3.0 Intake and Output 07/02/20 07:00 Intake Total 200 ml Balance 200 ml Intake Oral 200 ml # Voids 3 PHYSICAL EXAM Alert. Oriented only to person. PERRL. EOMI. CN: no focal findings. Muscle tone: normal. Muscle strength: 4/5 DTR: 1+ Plantar reflex: flexor Gait: not examined in bed. Sensory exam: no abnormal findings. No cerebellar signs elicited. Review of Relevant I have reviewed the following items tonya (where applicable) has been applied. Labs Laboratory Tests Test 07/01/20 08:20 Sodium Level 144 mmol/L (136-145) Potassium Level 3.5 mmol/L (3.5-5.1) Chloride Level 107 mmol/L (98-107) Carbon Dioxide Level 30 mmol/L (21-32) Anion Gap 7 (6-14) Blood Urea Nitrogen 9 mg/dL (8-26) Creatinine 1.1 mg/dL (0.7-1.3) Estimated GFR (Cockcroft-Gault) 63.6 BUN/Creatinine Ratio 8 (6-20) Glucose Level 136 mg/dL (70-99) Calcium Level 9.1 mg/dL (8.5-10.1) Total Bilirubin 0.8 mg/dL (0.2-1.0) Aspartate Amino Transf (AST/SGOT) 42 U/L (15-37) Alanine Aminotransferase (ALT/SGPT) 34 U/L (16-63) Alkaline Phosphatase 66 U/L (46-116) Total Protein 7.7 g/dL (6.4-8.2) Albumin 3.2 g/dL (3.4-5.0) Albumin/Globulin Ratio 0.7 (1.0-1.7) Medications Current Medications Nitroglycerin (Nitrostat) 0.4 mg PRN Q5MIN PRN SL CHEST PAIN; Start 06/29/20 at 12:00; Stop 06/30/20 at 11:59; Status DC Potassium Chloride (Klor-Con) 40 meq 1X ONCE PO ; Start 06/29/20 at 15:15; Stop 06/29/20 at 15:16; Status DC Sodium Chloride 1,000 ml @ 100 mls/hr 1X ONCE IV Last administered on 06/29/20at 17:29; Start 06/29/20 at 16:15; Stop 06/30/20 at 02:14; Status DC Haloperidol Lactate (Haldol Inj) 5 mg 1X ONCE IM ; Start 06/29/20 at 22:30; Stop 06/29/20 at 22:18; Status DC Haloperidol Lactate (Haldol Inj) 5 mg PRN Q4HRS PRN IM AGITATION Last administered on 06/30/20at 19:49; Start 06/29/20 at 22:30 Pharmacy Consult (C.diff Med Screen By Rx) 1 each 1X ONCE MC ; Start 06/30/20 at 00:30; Stop 06/30/20 at 00:34; Status DC Acetaminophen (Tylenol) 1,000 mg PRN Q8HRS PRN PO pain or fever; Start 06/30/20 at 10:15 Allopurinol (Zyloprim) 300 mg DAILY PO Last administered on 07/02/20at 08:26; Start 06/30/20 at 10:30 Amlodipine Besylate (Norvasc) 10 mg DAILY PO Last administered on 07/02/20at 08:26; Start 06/30/20 at 10:30 Aspirin (Aspirin Chewable) 81 mg DAILY PO Last administered on 07/02/20at 08:25; Start 06/30/20 at 10:30 Donepezil HCl (Aricept) 10 mg HS PO Last administered on 07/01/20at 22:30; Start 06/30/20 at 21:00 Levetiracetam (Keppra) 500 mg BID PO ; Start 06/30/20 at 10:30; Stop 06/30/20 at 21:00; Status Cancel Quetiapine Fumarate (SEROquel) 25 mg BID PO Last administered on 07/01/20at 22:30; Start 06/30/20 at 10:30 Sertraline HCl (Zoloft) 50 mg DAILY PO ; Start 06/30/20 at 10:30 Vitamin D (Vitamin D3) 1,000 unit DAILY PO Last administered on 07/02/20at 08:25; Start 06/30/20 at 10:30 Multivitamins (Thera M Plus) 1 tab DAILY PO Last administered on 07/02/20at 08:26; Start 06/30/20 at 10:30 Non-Formulary Medication (Pravastatin Sodium ) 1 tab QHS PO ; Start 06/30/20 at 21:00; Status UNV Non-Formulary Medication (Timolol Maleate/ Latanoprost/Pf (Timolol 0.5%- Latanopros 0.005%)) 5 ml DAILY OP ; Start 07/01/20 at 09:00; Status UNV Latanoprost (Xalatan) 1 drop QHS OU Last administered on 07/01/20at 22:42; Start 06/30/20 at 21:00 Thiamine Mononitrate (Vitamin B-1) 100 mg DAILY PO Last administered on 07/02/20at 08:25; Start 06/30/20 at 10:30 Potassium Chloride/Sodium Chloride 1,000 ml @ 75 mls/hr [id number] IV ; Start 06/30/20 at 10:15; Stop 07/01/20 at 13:09; Status DC Levetiracetam 500 mg/Dextrose 105 ml @ 420 mls/hr Q12HR IV ; Start 06/30/20 at 11:00; Stop 06/30/20 at 16:05; Status DC Timolol Maleate (Timoptic 0.5% Ophth) 1 drop QHS OU Last administered on 07/01/20at 22:42; Start 06/30/20 at 21:00 Nystatin (Nystop) 1 celena BID TP Last administered on 07/01/20at 22:43; Start 06/30/20 at 21:00 Levetiracetam (Keppra) 500 mg BID PO ; Start 06/30/20 at 21:00; Stop 06/30/20 at 17:55; Status DC Levetiracetam (Keppra) 750 mg BID PO Last administered on 07/02/20at 08:25; Start 06/30/20 at 21:00 Active Scripts Active Reported Norvasc (Amlodipine Besylate) 10 Mg Tablet 10 Mg PO DAILY Aspirin 81 Mg Tab.chew 81 Mg PO DAILY Acidophilus Lactobacilli (Lactobacillus Acidophilus) 1 Each Capsule 1 Each PO BID Vitamin D3 (Cholecalciferol (Vitamin D3)) 2,400 Unit/1 Ml Liquid 1,000 Unit MC DAILY Acetaminophen 500 Mg Tablet 2 Tab PO PRN Q8HRS PRN 15 Days Timolol 0.5%-Latanopros 0.005% (Timolol Maleate/Latanoprost/Pf) 5 Ml Drops 5 Ml OP DAILY Levetiracetam 500 Mg Tab.er.24h 1 Tab PO BID 30 Days Seroquel (Quetiapine Fumarate) 25 Mg Tablet 12.5 Mg PO HS Pravastatin Sodium 20 Mg Tablet 1 Tab PO QHS Amlodipine Besylate 10 Mg Tablet 10 Mg PO DAILY Zoloft (Sertraline Hcl) 50 Mg Tablet 1 Tab PO DAILY Allopurinol 300 Mg Tablet 1 Tab PO DAILY Donepezil Hcl 10 Mg Tablet 1 Tab PO HS Lisinopril 10 Mg Tablet 1 Tab PO DAILY Levetiracetam 500 Mg Tablet 1 Tab PO BID Aspirin 81 Mg Tab.chew 1 Tab PO DAILY [vitamin b1] 1 Tab PO DAILY Multivitamins (Multivitamin) 1 Each Tablet 1 Tab PO DAILY Travatan Z (Travoprost) 5 Ml Drops 1 Drop EACHEYE QHS Vitals/I & O Vital Sign - Last 24 Hours 07/01/20 07/01/20 07/01/20 07/01/20 11:59 19:00 22:30 23:00 Temp 98.4 98.5 98.4 98.5 Pulse 74 77 78 Resp 18 20 18 B/P (MAP) 111/69 (83) 108/66 (80) 110/63 (79) Pulse Ox 96 95 93 O2 Delivery Room Air Room Air Room Air Room Air 07/02/20 07/02/20 07/02/20 03:01 07:00 08:26 Temp 98.0 98.0 98.0 98.0 Pulse 68 57 57 Resp 16 17 B/P (MAP) 87/57 (67) 119/72 (88) 119/72 Pulse Ox 94 96 O2 Delivery Room Air Room Air Intake and Output 07/01/20 07/01/20 07/02/20 15:00 23:00 07:00 Intake Total 200 ml Balance 200 ml Justicifation of Admission Dx: Justifications for Admission: Justification of Admission Dx: Yes Angina: Unstable Variant REMY HAMPTON MD Jul 02, 2020 09:36
--- NOTE | 2020-07-02 10:47 | PN ---
DATE: 07/02/2020 SUBJECTIVE: The patient is resting flat in bed, in no apparent respiratory distress, continued to be combative at times and restless, but generally has an uneventful night. He is now DNR/DNI. His family wanted him to eat and he is on pureed diet, nectar honey thickened liquid. They also expressed a desire to discharge him home with hospice as they were not able to visit him at a fdc facility. I already spoke with the social professionals to see if that can be achieved. PHYSICAL EXAMINATION: GENERAL: When I examined him this morning, he looked pale, no jaundice, cyanosis or thyromegaly. No jugular venous distention. No limb edema. VITAL SIGNS: His heart rate was 57, blood pressure was 119/72, temperature was 98, respiratory rate was 17, and oxygen saturation was 96%. HEAD, EYES, EARS, NOSE, AND THROAT: Showed normocephalic, atraumatic. NECK: Supple. CARDIAC: Normal first and second heart sounds. No gallop or murmur. CHEST: Clear to auscultation. No crepitation or rhonchi. ABDOMEN: Distended, soft, nontender. No guarding or rigidity. No organomegaly. All hernial orifice intact. Bowel sounds normal. NEUROLOGIC: He is demented. He moves extremities; however, he is mostly bedbound, chair bound. His intake and output are incompletely recorded. LABORATORY DATA: As of yesterday, his serum sodium was 144, potassium 3.5, chloride 107, bicarbonate 30, anion gap of 7, BUN 9, creatinine 1.1, estimated GFR was 64 mL per minute, his glucose 136, calcium was 9.1. Total bilirubin, AST, ALT, alkaline phosphatase were normal. Total protein 7.7, albumin was 3.2. ASSESSMENT: 1. 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 2. Advanced dementia. 3. Seizure disorder for which he is on Keppra and has had apparently breakthrough seizure for which his Keppra was increased to 750 mg twice a day. 4. The family has requested no IV line and no telemetry, that the patient should be allowed to eat and drink given the risk of aspiration. He is now DNR/DNI and they would like to explore the possibility of discharging him home with hospice rather than fdc facility with hospice. LIS DODGE MD DR: Aleks JOB#: [id number] / [id number]
--- NOTE | 2020-07-02 12:02 | NUR ---
SW following. Discussed with RN. 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 Recommendation of hospice. NESSA met with pt and pt's family at bedside (no isolation precautions at the time). Family wanting information on hospice at home vs hospice at [facility]. NESSA had spoken with Ebonie at [facility], family can only visit when pt is actively dying. Family agreeable to referral to [facility] for an informational. NESSA phoned and faxed referral to [facility], family meeting arranged for 1300. If pt returns to [facility], COVID-19 test needed - RN notified. SW will continue to follow.
--- NOTE | 2020-07-02 13:52 | EKG ---
[facility] [address] [place] [address] Test Date: 2020-06-29 Test Time: 09:00:46 Pat Name: BETTE SIDHU Department: Room: Gender: M Voip Engineer: Jed : 1935 Requested By: LIANET HAINES Order Number: [id number] Reading MD: Measurements Intervals [place] Rate: 75 P: 4 OR: 154 QRS: 19 QRSD: 94 T: 10 QT: 438 QTc: 492 Interpretive Statements SINUS RHYTHM QRS(T) CONTOUR ABNORMALITY CONSIDER ANTEROSEPTAL MYOCARDIAL DAMAGE PROLONGED QT POSSIBLY ABNORMAL ECG RI6.01 No previous ECG available for comparison
[2020-07-02] MEDS: ASCORBIC ACID 500 MG TABLET PO SCH (14:46)
[2020-07-02] MEDS: NYSTATIN TOPICAL POWDER 15GM BOTTLE. TP SCH ×2 (14:46→21:49)
--- NOTE | 2020-07-02 15:15 | NUR ---
Wound Care Wound Type/Assessment: Head to toe assessment completed. Stage II pressure wound noted to coccyx, pictured and measured (see detailed assessment). No other wounds noted on head to toe assessment. Pt was non-verbal during interaction but attempted to follow some verbal commands. Treatment Recommendations/Plan: Apply barrier cream to coccyx BID and PRN soiling. Turn Q2H. Recommend P500 bed (called to [facility]). Education provided: Report given to nurse and SPREAD CUTTER as pt unable to verbalize understanding regarding prevention of pressure ulcers Offloading surface/device: Recommend P500. Pt positioned on L side with pillows, heels floated. Follow up in one week
[2020-07-02] MEDS: DONEPEZIL HCL 10 MG TABLET. PO SCH (21:48)
[2020-07-02] MEDS: LATANOPROST 0.005% OPHTH SOLUTION 2.5ML BOTTLE. OU SCH (21:50)
[2020-07-02] MEDS: TIMOLOL 0.5% OPHTH SOLUTION 5ML BOTTLE. OU SCH (21:50)
[2020-07-03 02:29] VITALS: BP 93/47
[2020-07-03 07:27] VITALS: BP 103/59
[2020-07-03] MEDS: amLODIPine BESYLATE 10 MG TABLET PO SCH (09:00)
--- NOTE | 2020-07-03 09:40 | PDOC ---
PROGRESS NOTES Assessment Problems Medical Problems: (1) Chest pain Status: Acute (2) History of recent fall Status: Acute History of stroke stroke 20 years ago leading to dysphagia and some expressive aphasia. History of alcoholism Advanced dementia Epilepsy with breakthrough seizure. Plan Increased Keppra, 750 mg twice per day. Okay for discharge, note plans for hospice Follow-up with neurology as needed Subjective Indicates no pain Objective Vital Signs Date Time Temp Pulse Resp B/P (MAP) Pulse Ox O2 Delivery O2 Flow Rate FiO2 07/03/20 07:27 97.5 68 16 103/59 (74) 96 Room Air 97.5 Intake and Output 07/03/20 07:00 Intake Total 550 ml Balance 550 ml Intake Oral 550 ml # Voids 6 PHYSICAL EXAM Alert. Oriented only to person. PERRL. EOMI. CN: no focal findings. Muscle tone: normal. Muscle strength: 4/5 DTR: 1+ Plantar reflex: flexor Gait: not examined in bed. Sensory exam: no abnormal findings. No cerebellar signs elicited. Review of Relevant I have reviewed the following items tonya (where applicable) has been applied. Medications Current Medications Nitroglycerin (Nitrostat) 0.4 mg PRN Q5MIN PRN SL CHEST PAIN; Start 06/29/20 at 12:00; Stop 06/30/20 at 11:59; Status DC Potassium Chloride (Klor-Con) 40 meq 1X ONCE PO ; Start 06/29/20 at 15:15; Stop 06/29/20 at 15:16; Status DC Sodium Chloride 1,000 ml @ 100 mls/hr 1X ONCE IV Last administered on 06/29/20at 17:29; Start 06/29/20 at 16:15; Stop 06/30/20 at 02:14; Status DC Haloperidol Lactate (Haldol Inj) 5 mg 1X ONCE IM ; Start 06/29/20 at 22:30; Stop 06/29/20 at 22:18; Status DC Haloperidol Lactate (Haldol Inj) 5 mg PRN Q4HRS PRN IM AGITATION Last administered on 06/30/20at 19:49; Start 06/29/20 at 22:30 Pharmacy Consult (C.diff Med Screen By Rx) 1 each 1X ONCE MC ; Start 06/30/20 at 00:30; Stop 06/30/20 at 00:34; Status DC Acetaminophen (Tylenol) 1,000 mg PRN Q8HRS PRN PO pain or fever Last administered on 07/02/20 21:48; Start 06/30/20 at 10:15 Allopurinol (Zyloprim) 300 mg DAILY PO Last administered on 07/02/20 08:26; Start 06/30/20 at 10:30 Amlodipine Besylate (Norvasc) 10 mg DAILY PO Last administered on 07/02/20 08:26; Start 06/30/20 at 10:30 Aspirin (Aspirin Chewable) 81 mg DAILY PO Last administered on 07/02/20 08:25; Start 06/30/20 at 10:30 Donepezil HCl (Aricept) 10 mg HS PO Last administered on 07/02/20 21:48; Start 06/30/20 at 21:00 Levetiracetam (Keppra) 500 mg BID PO ; Start 06/30/20 at 10:30; Stop 06/30/20 at 21:00; Status Cancel Quetiapine Fumarate (SEROquel) 25 mg BID PO Last administered on 07/02/20 21:48; Start 06/30/20 at 10:30 Sertraline HCl (Zoloft) 50 mg DAILY PO ; Start 06/30/20 at 10:30 Vitamin D (Vitamin D3) 1,000 unit DAILY PO Last administered on 07/02/20 08:25; Start 06/30/20 at 10:30 Multivitamins (Thera M Plus) 1 tab DAILY PO Last administered on 07/02/20 08:26; Start 06/30/20 at 10:30 Non-Formulary Medication (Pravastatin Sodium ) 1 tab QHS PO ; Start 06/30/20 at 21:00; Stop 07/02/20 at 18:10; Status DC Non-Formulary Medication (Timolol Maleate/ Latanoprost/Pf (Timolol 0.5%- Latanopros 0.005%)) 5 ml DAILY OP ; Start 07/01/20 at 09:00; Status UNV Latanoprost (Xalatan) 1 drop QHS OU Last administered on 07/02/20 21:50; Start 06/30/20 at 21:00 Thiamine Mononitrate (Vitamin B-1) 100 mg DAILY PO Last administered on 8/3/20at 08:25; Start 06/30/20 at 10:30 Potassium Chloride/Sodium Chloride 1,000 ml @ 75 mls/hr [id number] IV ; Start 06/30/20 at 10:15; Stop 07/01/20 at 13:09; Status DC Levetiracetam 500 mg/Dextrose 105 ml @ 420 mls/hr Q12HR IV ; Start 06/30/20 at 11:00; Stop 06/30/20 at 16:05; Status DC Timolol Maleate (Timoptic 0.5% Ophth) 1 drop QHS OU Last administered on 07/02/20at 21:50; Start 06/30/20 at 21:00 Nystatin (Nystop) 1 celena BID TP Last administered on 07/02/20at 21:49; Start 06/30/20 at 21:00 Levetiracetam (Keppra) 500 mg BID PO ; Start 06/30/20 at 21:00; Stop 06/30/20 at 17:55; Status DC Levetiracetam (Keppra) 750 mg BID PO Last administered on 07/02/20at 21:49; Start 06/30/20 at 21:00 Ascorbic Acid (Vitamin C) 500 mg DAILY PO Last administered on 07/02/20at 14:46; Start 07/02/20 at 14:00 Active Scripts Active Reported Norvasc (Amlodipine Besylate) 10 Mg Tablet 10 Mg PO DAILY Aspirin 81 Mg Tab.chew 81 Mg PO DAILY Acidophilus Lactobacilli (Lactobacillus Acidophilus) 1 Each Capsule 1 Each PO BID Vitamin D3 (Cholecalciferol (Vitamin D3)) 2,400 Unit/1 Ml Liquid 1,000 Unit MC DAILY Acetaminophen 500 Mg Tablet 2 Tab PO PRN Q8HRS PRN 15 Days Timolol 0.5%-Latanopros 0.005% (Timolol Maleate/Latanoprost/Pf) 5 Ml Drops 5 Ml OP DAILY Levetiracetam 500 Mg Tab.er.24h 1 Tab PO BID 30 Days Seroquel (Quetiapine Fumarate) 25 Mg Tablet 12.5 Mg PO HS Pravastatin Sodium 20 Mg Tablet 1 Tab PO QHS Amlodipine Besylate 10 Mg Tablet 10 Mg PO DAILY Zoloft (Sertraline Hcl) 50 Mg Tablet 1 Tab PO DAILY Allopurinol 300 Mg Tablet 1 Tab PO DAILY Donepezil Hcl 10 Mg Tablet 1 Tab PO HS Lisinopril 10 Mg Tablet 1 Tab PO DAILY Levetiracetam 500 Mg Tablet 1 Tab PO BID Aspirin 81 Mg Tab.chew 1 Tab PO DAILY [vitamin b1] 1 Tab PO DAILY Multivitamins (Multivitamin) 1 Each Tablet 1 Tab PO DAILY Travatan Z (Travoprost) 5 Ml Drops 1 Drop EACHEYE [facility] Vitals/I & O Vital Sign - Last 24 Hours 07/02/20 07/02/20 07/02/20 07/02/20 11:00 15:00 19:10 19:58 Temp 97.6 98.1 97.9 97.6 98.1 97.9 Pulse 64 59 68 Resp 17 16 18 B/P (MAP) 95/61 (72) 101/59 (73) 93/54 (67) Pulse Ox 96 96 93 O2 Delivery Room Air Room Air Room Air Room Air 07/02/20 07/02/20 07/03/20 07/03/20 23:00 23:00 02:29 07:27 Temp 98.3 98.9 97.7 97.5 98.3 98.9 97.7 97.5 Pulse 75 75 65 68 Resp 20 20 18 16 B/P (MAP) 97/62 (74) 97/62 (74) 93/47 (62) 103/59 (74) Pulse Ox 94 94 94 96 O2 Delivery Room Air Room Air Room Air Intake and Output 07/02/20 07/02/20 07/03/20 15:00 23:00 07:00 Intake Total 200 ml 300 ml 50 ml Balance 200 ml 300 ml 50 ml Justicifation of Admission Dx: Justifications for Admission: Justification of Admission Dx: Yes Angina: Unstable Variant REMY HAMPTON MD Jul 03, 2020 09:39
[2020-07-03] MEDS: ASPIRIN CHEWABLE 81 MG TABLET. PO SCH (10:27)
[2020-07-03] MEDS: THIAMINE 100 MG TABLET. PO SCH (10:28)
[2020-07-03] MEDS: levETIRAcetam 250 MG TABLET PO SCH ×2 (10:28→22:05)
[2020-07-03] MEDS: ASCORBIC ACID 500 MG TABLET PO SCH (10:29)
[2020-07-03] MEDS: ALLOPURINOL 300 MG TABLET. PO SCH (10:29)
[2020-07-03] MEDS: QUEtiapine 25 MG TABLET. PO SCH ×2 (10:29→22:06)
[2020-07-03] MEDS: MULTIVITAMIN with MINERAL TABLET. PO SCH (10:29)
[2020-07-03] MEDS: SERTRALINE 50 MG TABLET. PO SCH (10:29)
[2020-07-03] MEDS: CHOLECALCIFEROL (VITAMIN D3) 1,000 UNIT TABLET PO SCH (10:29)
[2020-07-03] MEDS: NYSTATIN TOPICAL POWDER 15GM BOTTLE. TP SCH ×2 (10:30→22:07)
--- NOTE | 2020-07-03 11:00 | PN ---
DATE: 07/03/2020 SUBJECTIVE: The patient is resting, slightly propped up in bed, no apparent distress. He is very confused, although he is more awake, alert today. Has eaten about 25% of his breakfast. His family expressed desire to take him home on hospice or to go on hospice at [place]. They have a meeting with the addiction social worker and a meeting has been arranged with [facility] today at 1:00 to make the final decision as to where to take him, either home or intermediate. PHYSICAL EXAMINATION: GENERAL: When I saw him this morning, he looked well and was clearly in no apparent respiratory distress. No pallor, jaundice, cyanosis or thyromegaly. No jugular venous distention. No limb edema. VITAL SIGNS: His heart rate was 68, blood pressure was 103/59, temperature was 97.5, respiratory rate was 16 and oxygen saturation was 96%. HEAD, EYES, EARS, NOSE AND THROAT: Normocephalic, atraumatic. NECK: Supple. HEART: Showed normal first and second heart sounds. No gallop or murmur. CHEST: Clear to auscultation. No crepitation or rhonchi. ABDOMEN: Distended, soft, nontender. NEUROLOGICAL: He is demented. He is mostly bedbound, chair bound. His intake and output are incompletely recorded. LABORATORY DATA: His most recent chemistry showed a serum sodium of 144, potassium 3.5, chloride 107, bicarbonate 30, anion gap of 7, BUN 9, creatinine 1.1, estimated GFR was 64 mL per minute, his glucose was 136, calcium was 9.1. Total bilirubin, AST, ALT and alkaline phosphatase were normal. ASSESSMENT: 1. 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 2. Advanced dementia. 3. Seizure disorder for which he is on Keppra. He has apparently breakthrough seizure for which his Keppra was increased to 750 twice a day. 4. Family has requested no IV line and no telemetry, that the patient should be allowed to eat and drink even given the risk of aspiration. 5. He is now do not resuscitate/do not intubate, and they would like to explore the possibility of discharging him home with hospice versus hospice at intermediate. LIS DODGE MD DR: RACHELE/ervin JOB#: [id number] / [id number]
[2020-07-03 11:01] VITALS: BP 106/62
--- NOTE | 2020-07-03 12:22 | NUR ---
SW following. Discussed with RN and Summer with [facility]. Some confusion over whether family has decided to take pt home with hospice or go to [place] with hospice. SW left voicemail for pt's daughter, Deanna. SW will continue to follow.
[2020-07-03 15:18] VITALS: BP 107/64
[2020-07-03 19:00] VITALS: BP 100/59
--- NOTE | 2020-07-03 19:35 | NUR ---
At approximately 1500, this patient's was reinformed on how he needs to eat and drink. 90 degrees, no straw, and honey thickened liquid. Reeducated on the dangers of this liquids. She informed me he drank well out of her rosa maria dry can, and gatorade, not thickened, also part of her banana while laying at 30 degrees. I showed her the bright green papers of his eating and drinking ability. Once she was educated, she asked questions about the dangers, promptly reinformed her of the dangers of him drinking and eating as he was, more bluntly. Her daughter had come in, and I overheard her talk to her daughter about what she gave him. I educated and showed both and daughter how much thickening to use and how much liquid in the cup. will need reminding on visits. The daughter verbalized and demonstrated the education on feedings.
[2020-07-03] MEDS: TIMOLOL 0.5% OPHTH SOLUTION 5ML BOTTLE. OU SCH (22:06)
[2020-07-03] MEDS: LATANOPROST 0.005% OPHTH SOLUTION 2.5ML BOTTLE. OU SCH (22:06)
[2020-07-03] MEDS: DONEPEZIL HCL 10 MG TABLET. PO SCH (22:06)
[2020-07-03 23:06] VITALS: BP 115/76
[2020-07-04 02:50] VITALS: BP 102/62
[2020-07-04 06:49] VITALS: BP 94/64
[2020-07-04] MEDS: NYSTATIN TOPICAL POWDER 15GM BOTTLE. TP SCH (09:00)
[2020-07-04] MEDS: ASPIRIN CHEWABLE 81 MG TABLET. PO SCH (09:24)
[2020-07-04] MEDS: THIAMINE 100 MG TABLET. PO SCH (09:24)
[2020-07-04] MEDS: SERTRALINE 50 MG TABLET. PO SCH (09:24)
[2020-07-04] MEDS: ASCORBIC ACID 500 MG TABLET PO SCH (09:24)
[2020-07-04] MEDS: ALLOPURINOL 300 MG TABLET. PO SCH (09:24)
[2020-07-04] MEDS: CHOLECALCIFEROL (VITAMIN D3) 1,000 UNIT TABLET PO SCH (09:24)
[2020-07-04] MEDS: levETIRAcetam 250 MG TABLET PO SCH (09:24)
[2020-07-04] MEDS: MULTIVITAMIN with MINERAL TABLET. PO SCH (09:25)
[2020-07-04] MEDS: QUEtiapine 25 MG TABLET. PO SCH (09:25)
--- NOTE | 2020-07-04 10:02 | NUR ---
NESSA following. Discussed with RN. NESSA spoke with pt's daughter, Deanna - plan is for pt to return to [facility] with hospice. NESSA faxed clinical updates, left message for Ebonie at [facility] to return call RE discharge. NESSA will continue to follow. Addendum: 07/04/20 at 1227 by MAUREEN SZYMANSKI Discharge orders faxed, awaiting transportation time from [facility]. Addendum: 07/04/20 at 1356 by MAUREEN SZYMANSKI Transportation arranged by [facility] for between [id number], RN, family and Ema notified.
--- NOTE | 2020-07-04 10:09 | PDOC ---
PROGRESS NOTES Assessment Problems Medical Problems: (1) Chest pain Status: Acute (2) History of recent fall Status: Acute History of stroke stroke 20 years ago leading to dysphagia and some expressive aphasia. History of alcoholism Advanced dementia Epilepsy with breakthrough seizure. Plan Increased Keppra, 750 mg twice per day. Okay for discharge, note plans for hospice Follow-up with neurology as needed Neurology signs off Subjective None Objective Vital Signs Date Time Temp Pulse Resp B/P (MAP) Pulse Ox O2 Delivery O2 Flow Rate FiO2 07/04/20 08:00 Room Air 07/04/20 06:49 98.4 76 19 94/64 (74) 97 98.4 Intake and Output 07/04/20 07:00 Intake Total 460 ml Balance 460 ml Intake Oral 460 ml # Voids 6 # Bowel Movements 2 PHYSICAL EXAM Sleepy, alerts to soft voice. Oriented only to person. PERRL. EOMI. CN: no focal findings. Muscle tone: normal. Muscle strength: 4/5 DTR: 1+ Plantar reflex: flexor Gait: not examined in bed. Sensory exam: no abnormal findings. No cerebellar signs elicited. Review of Relevant I have reviewed the following items tonya (where applicable) has been applied. Medications Current Medications Nitroglycerin (Nitrostat) 0.4 mg PRN Q5MIN PRN SL CHEST PAIN; Start 06/29/20 at 12:00; Stop 06/30/20 at 11:59; Status DC Potassium Chloride (Klor-Con) 40 meq 1X ONCE PO ; Start 06/29/20 at 15:15; Stop 06/29/20 at 15:16; Status DC Sodium Chloride 1,000 ml @ 100 mls/hr 1X ONCE IV Last administered on 06/29/20at 17:29; Start 06/29/20 at 16:15; Stop 06/30/20 at 02:14; Status DC Haloperidol Lactate (Haldol Inj) 5 mg 1X ONCE IM ; Start 06/29/20 at 22:30; Stop 06/29/20 at 22:18; Status DC Haloperidol Lactate (Haldol Inj) 5 mg PRN Q4HRS PRN IM AGITATION Last administered on 06/30/20at 19:49; Start 06/29/20 at 22:30 Pharmacy Consult (C.diff Med Screen By Rx) 1 each 1X ONCE MC ; Start 06/30/20 at 00:30; Stop 06/30/20 at 00:34; Status DC Acetaminophen (Tylenol) 1,000 mg PRN Q8HRS PRN PO pain or fever Last administered on 07/02/20 21:48; Start 06/30/20 at 10:15 Allopurinol (Zyloprim) 300 mg DAILY PO Last administered on 07/04/20 09:24; Start 06/30/20 at 10:30 Amlodipine Besylate (Norvasc) 10 mg DAILY PO Last administered on 07/02/20 08:26; Start 06/30/20 at 10:30 Aspirin (Aspirin Chewable) 81 mg DAILY PO Last administered on 07/04/20 09:24; Start 06/30/20 at 10:30 Donepezil HCl (Aricept) 10 mg HS PO Last administered on 07/03/20 22:06; Start 06/30/20 at 21:00 Levetiracetam (Keppra) 500 mg BID PO ; Start 06/30/20 at 10:30; Stop 06/30/20 at 21:00; Status Cancel Quetiapine Fumarate (SEROquel) 25 mg BID PO Last administered on 07/04/20 09:25; Start 06/30/20 at 10:30 Sertraline HCl (Zoloft) 50 mg DAILY PO Last administered on 07/04/20 09:24; Start 06/30/20 at 10:30 Vitamin D (Vitamin D3) 1,000 unit DAILY PO Last administered on 07/04/20 09:24; Start 06/30/20 at 10:30 Multivitamins (Thera M Plus) 1 tab DAILY PO Last administered on 07/04/20 09:25; Start 06/30/20 at 10:30 Non-Formulary Medication (Pravastatin Sodium ) 1 tab QHS PO ; Start 06/30/20 at 21:00; Stop 07/02/20 at 18:10; Status DC Non-Formulary Medication (Timolol Maleate/ Latanoprost/Pf (Timolol 0.5%- Latanopros 0.005%)) 5 ml DAILY OP ; Start 07/01/20 at 09:00; Status UNV Latanoprost (Xalatan) 1 drop QHS OU Last administered on 8/4/20at 22:06; Start 06/30/20 at 21:00 Thiamine Mononitrate (Vitamin B-1) 100 mg DAILY PO Last administered on 07/04/20at 09:24; Start 06/30/20 at 10:30 Potassium Chloride/Sodium Chloride 1,000 ml @ 75 mls/hr [id number] IV ; Start 06/30/20 at 10:15; Stop 07/01/20 at 13:09; Status DC Levetiracetam 500 mg/Dextrose 105 ml @ 420 mls/hr Q12HR IV ; Start 06/30/20 at 11:00; Stop 06/30/20 at 16:05; Status DC Timolol Maleate (Timoptic 0.5% Ophth) 1 drop QHS OU Last administered on 07/03/20at 22:06; Start 06/30/20 at 21:00 Nystatin (Nystop) 1 celena BID TP Last administered on 07/04/20at 09:00; Start 06/30/20 at 21:00 Levetiracetam (Keppra) 500 mg BID PO ; Start 06/30/20 at 21:00; Stop 06/30/20 at 17:55; Status DC Levetiracetam (Keppra) 750 mg BID PO Last administered on 07/04/20at 09:24; Start 06/30/20 at 21:00 Ascorbic Acid (Vitamin C) 500 mg DAILY PO Last administered on 07/04/20at 09:24; Start 07/02/20 at 14:00 Active Scripts Active Reported Norvasc (Amlodipine Besylate) 10 Mg Tablet 10 Mg PO DAILY Aspirin 81 Mg Tab.chew 81 Mg PO DAILY Acidophilus Lactobacilli (Lactobacillus Acidophilus) 1 Each Capsule 1 Each PO BID Vitamin D3 (Cholecalciferol (Vitamin D3)) 2,400 Unit/1 Ml Liquid 1,000 Unit MC DAILY Acetaminophen 500 Mg Tablet 2 Tab PO PRN Q8HRS PRN 15 Days Timolol 0.5%-Latanopros 0.005% (Timolol Maleate/Latanoprost/Pf) 5 Ml Drops 5 Ml OP DAILY Levetiracetam 500 Mg Tab.er.24h 1 Tab PO BID 30 Days Seroquel (Quetiapine Fumarate) 25 Mg Tablet 12.5 Mg PO HS Pravastatin Sodium 20 Mg Tablet 1 Tab PO QHS Amlodipine Besylate 10 Mg Tablet 10 Mg PO DAILY Zoloft (Sertraline Hcl) 50 Mg Tablet 1 Tab PO DAILY Allopurinol 300 Mg Tablet 1 Tab PO DAILY Donepezil Hcl 10 Mg Tablet 1 Tab PO HS Lisinopril 10 Mg Tablet 1 Tab PO DAILY Levetiracetam 500 Mg Tablet 1 Tab PO BID Aspirin 81 Mg Tab.chew 1 Tab PO DAILY [vitamin b1] 1 Tab PO DAILY Multivitamins (Multivitamin) 1 Each Tablet 1 Tab PO DAILY Travatan Z (Travoprost) 5 Ml Drops 1 Drop EACHEYE QHS Vitals/I & O Vital Sign - Last 24 Hours 07/03/20 07/03/20 07/03/20 07/03/20 11:01 15:18 19:00 20:00 Temp 98.0 98.2 98.5 98.0 98.2 98.5 Pulse 74 73 86 Resp 18 18 20 B/P (MAP) 106/62 (77) 107/64 (78) 100/59 (73) Pulse Ox 95 97 98 O2 Delivery Room Air Room Air Room Air Room Air 07/03/20 07/04/20 07/04/20 07/04/20 23:06 02:50 06:49 08:00 Temp 98.8 98.4 98.4 98.8 98.4 98.4 Pulse 94 74 76 Resp 22 20 19 B/P (MAP) 115/76 (89) 102/62 (75) 94/64 (74) Pulse Ox 93 94 97 O2 Delivery Room Air Room Air Room Air Room Air Intake and Output 07/03/20 07/03/20 07/04/20 15:00 23:00 07:00 Intake Total 310 ml 150 ml Balance 310 ml 150 ml Justicifation of Admission Dx: Justifications for Admission: Justification of Admission Dx: Yes Angina: Unstable Variant REMY HAMPTON MD Jul 04, 2020 10:09
[2020-07-04 10:33] VITALS: BP 108/69
[2020-07-04] MEDS: amLODIPine BESYLATE 10 MG TABLET PO SCH (12:00)
[2020-07-04] MEDS ORDERED: LEVE750T23 PO (12:08)
--- NOTE | 2020-07-04 12:17 | SNU/HH DC ---
DISCHARGE ORDERS DISCHARGE INFORMATION: DISCHARGE DATE: Jul 04, 2020 FINAL DIAGNOSIS Problems Medical Problems: (1) Chest pain Status: Acute (2) History of recent fall Status: Acute CONDITION ON DISCHARGE: Stable CODE STATUS: Code Status: DNR/DNI HOSPICE: HOSPICE: Yes HOSPICE EVAL & TREAT: Yes POST DISCHARGE ORDERS: ACTIVITY ORDERS: Activity as tolerated DIET AFTER DISCHARGE: Regular DISCHARGE MEDICATIONS: Home Meds Active Scripts Levetiracetam (LEVETIRACETAM) 750 Mg Tab.er.24h, 1 TAB PO BID for seizures for 30 Days, #60 TAB 0 Refills Prov:LIS DODGE MD 07/04/20 Reported Medications Amlodipine Besylate (NORVASC) 10 Mg Tablet, 10 MG PO DAILY for HTN, TAB 06/30/20 Aspirin (ASPIRIN) 81 Mg Tab.chew, 81 MG PO DAILY for prophylaxis, TAB.CHEW 06/30/20 Lactobacillus Acidophilus (Acidophilus Lactobacilli) 1 Each Capsule, 1 EACH PO BID for supplement, CAP 06/30/20 Cholecalciferol (Vitamin D3) (VITAMIN D3) 2,400 Unit/1 Ml Liquid, 1000 UNIT MC DAILY for SUPPLEMENT, LIQUID 06/29/20 Acetaminophen (ACETAMINOPHEN) 500 Mg Tablet, 2 TAB PO PRN Q8HRS PRN for pain or fever for 15 Days, #60 TAB 0 Refills 06/29/20 Timolol Maleate/Latanoprost/Pf (Timolol 0.5%-Latanopros 0.005%) 5 Ml Drops, 5 ML OP DAILY for EYE GTT., DROP 06/29/20 Quetiapine Fumarate (SEROQUEL) 25 Mg Tablet, 12.5 MG PO HS for dementia, TAB 06/16/18 Pravastatin Sodium (PRAVASTATIN SODIUM) 20 Mg Tablet, 1 TAB PO QHS, #90 TAB 3 Refills 06/16/18 Amlodipine Besylate (AMLODIPINE BESYLATE) 10 Mg Tablet, 10 MG PO DAILY, TAB 06/16/18 Sertraline Hcl (ZOLOFT) 50 Mg Tablet, 1 TAB PO DAILY, #30 TAB 2 Refills 06/16/18 Allopurinol (ALLOPURINOL) 300 Mg Tablet, 1 TAB PO DAILY, #30 TAB 5 Refills 06/16/18 Donepezil Hcl (DONEPEZIL HCL) 10 Mg Tablet, 1 TAB PO HS, #90 TAB 1 Refill 06/16/18 Lisinopril (LISINOPRIL) 10 Mg Tablet, 1 TAB PO DAILY, #30 TAB 5 Refills 06/16/18 Aspirin (ASPIRIN) 81 Mg Tab.chew, 1 TAB PO DAILY, #30 TAB 3 Refills 06/16/18 [vitamin b1] No Conflict Check, 1 TAB PO DAILY 06/16/18 Multivitamin (MULTIVITAMINS) 1 Each Tablet, 1 TAB PO DAILY, #90 TAB 3 Refills 06/16/18 Travoprost (TRAVATAN Z) 5 Ml Drops, 1 DROP EACHEYE QHS, #2.5 ML 2 Refills 06/16/18 Discontinued Reported Medications Levetiracetam (LEVETIRACETAM) 500 Mg Tab.er.24h, 1 TAB PO BID for EPILEPSY for 30 Days, #60 TAB 0 Refills 06/29/20 Levetiracetam (LEVETIRACETAM) 500 Mg Tablet, 1 TAB PO BID, #180 TAB 3 Refills 06/16/18 LIS DODGE MD Jul 04, 2020 12:17
--- NOTE | 2020-07-04 12:38 | DS ---
DATE OF DISCHARGE: 07/04/2020 HOSPITAL COURSE: The patient is an 84-year-old male patient, a resident at [facility], who was admitted with altered mental status, was found to have breakthrough seizures. He also complained of chest pain; however, 3 sets of cardiac enzymes ruled out myocardial infarction. He was seen in consultation by the neurologist who increased his Keppra to 750 mg twice a day. The patient was very agitated, pulling his IV line, his telemetry leads and the family did not do well with his video swallowing evaluation; however, the family opted to allow him to eat and drink. They do not want any further lab draws and no telemetry and they changed his code status DNR/DNI and opted to go on hospice initially to detention facility back to [place] and eventually to go home with hospice. PHYSICAL EXAMINATION: GENERAL: When I saw him today, he looked well and was clearly in no apparent respiratory distress. No pallor, jaundice, cyanosis or thyromegaly. No jugular venous distention. No lower limb edema. VITAL SIGNS: His heart rate was 68, blood pressure was 108/69, temperature was 98.2, respiratory rate was 19 and oxygen saturation was 100% on room air. The rest of clinical exam is stable, has not really changed. His intake was 550, no output was recorded. LABORATORY DATA: His most recent lab work showed a BUN of 9, creatinine 1.1. His hemoglobin was 11, hematocrit 35. His COVID by PCR was not detected. The patient will be discharged back to [place] on hospice. He was discharged on following medications. DISCHARGE MEDICATIONS: He was discharged back on Keppra 750 twice a day and Tylenol 1000 mg every 8 hours, allopurinol 300 mg once a day, amlodipine besylate 10 mg once a day, aspirin 81 mg once a day, cholecalciferol, vitamin D3 2400 units once a day, Aricept 10 mg once a day, lactobacillus acidophilus 1 capsule twice a day, lisinopril 10 mg once a day, multivitamin 1 tablet once a day, pravastatin sodium 20 mg once a day, quetiapine fumarate for Seroquel 12.5 mg at bedtime, sertraline 50 mg at bedtime, timolol maleate/latanoprost 1 drop to both eyes at bedtime, Travatan 1 drop to both eyes at bedtime, vitamin B1 one tablet once a day. He was also discharged on Roxanol 20 mg per mL solution to take 0.25-1 mL that is 5-20 mg p.o. sublingually every 4 hours as needed for pain and shortness of air, Ativan for Intensol 2 mg/mL to give 0.25-1 mL that is 0.5-2 mg p.o. sublingually every 4 hours as needed for anxiety and depression. FINAL DISCHARGE DIAGNOSES: 1. 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 2. Advanced dementia. 3. Seizure disorder with breakthrough. Family has requested no IV line, no telemetry that the patient should be allowed to eat and drink even with the risk of aspiration. They changed his code status DNR/DNI and the patient will be discharged back to [place] on hospice care. LIS DODGE MD DR: RACHELE/ervin JOB#: [id number] / [id number]
[2020-07-04 15:00] VITALS: BP 102/60
--- NOTE | 2020-07-04 15:57 | NUR ---
Discharge Note: KP SIDHU EDISON Discharge instructions and discharge home medications reviewed with Patient and a copy given. All questions have been answered and understanding verbalized. The following instructions and handouts were given: Patient given packet with scripts and instructions. Discontinued lines and drains: Patient did not have IV. Patient discharged to [place]. Report given to Renata Graham.
== END 2020-07-04 16:00 | disposition hospice, inpatient (51) | DRG 100 ==
LOC: ER 08:57 → 5 NORTH 11:49 → OBSVTOIN 11:49 → 5 NORTH 06-30 20:32
PROVIDERS: ADMIT Internal Medicine; ATTEND Internal Medicine
DX: G40.909 Epilepsy, unspecified, not intractable, without status epilepticus (principal); N17.0 Acute kidney failure with tubular necrosis; G93.41 Metabolic encephalopathy; F01.51 Vascular dementia, unspecified severity, with behavioral disturbance; Z20.828 Contact with and (suspected) exposure to other viral communicable diseases; E11.9 Type 2 diabetes mellitus without complications; E78.5 Hyperlipidemia, unspecified; E87.6 Hypokalemia; F10.20 Alcohol dependence, uncomplicated; I10 Essential (primary) hypertension; N40.0 Benign prostatic hyperplasia without lower urinary tract symptoms; Z51.5 Encounter for palliative care; Z66 Do not resuscitate; Z82.49 Family history of ischemic heart disease and other diseases of the circulatory system; Z87.440 Personal history of urinary (tract) infections; Z87.442 Personal history of urinary calculi; Z87.891 Personal history of nicotine dependence; Z96.653 Presence of artificial knee joint, bilateral; Z99.3 Dependence on wheelchair; D64.9 Anemia, unspecified; F32.9 Major depressive disorder, single episode, unspecified; F41.9 Anxiety disorder, unspecified; M10.9 Gout, unspecified; M19.90 Unspecified osteoarthritis, unspecified site; R07.89 Other chest pain; Z88.8 Allergy status to other drugs, medicaments and biological substances; I69.391 Dysphagia following cerebral infarction; I69.320 Aphasia following cerebral infarction
CPT/HCPCS: 36415; 70450; 71045; 72125; 80053; 80061; 82140; 84484; 85025; 93005; J1630; J7030; 92526-GN; 92610-GN; 99285-25; G0378; U0003-CS